=== PATIENT | female | born 1945 | race Caucasian/White ===

== ENCOUNTER 2020-11-29 23:08 | Emergency (ER) | payer OTHER ==
[~2020-11-29] VITALS: Ht 152.4 cm; Wt 49.9 kg
[2020-11-29 23:18] VITALS: BP 131/67
--- NOTE | 2020-11-29 23:20 | NUR ---
TO LOBBY A/W BED AMBULATORY
--- NOTE | 2020-11-29 23:50 | NUR ---
PT BROUGHT TO BED 3 VIA WHEELCHAIR
--- NOTE | 2020-11-30 00:10 | NUR ---
PATIENT PRESENTS TO ED VIA W/C WITH C/O DIFFUSE ABDOMINAL PAIN X 5-6 MONTHS. PER DAUGHTER, PT HAD A F/C PLACED, 3 WEEKS AGO AND IT WAS CHANGED 1 WEEK AGO . DENIES N/V/D; SKIN IS PINK/WARM/DRY; AAOX4. ; LUNGS CLEAR BL; HR EVEN AND REGULAR; PT DENIES ANY FEVER, CP, SOB, OR COUGH AT THIS TIME; VSS; PATIENT POSITIONED FOR COMFORT, REMAINS IN W/C ER MD MADE AWARE OF PT STATUS.
--- NOTE | 2020-11-30 00:18 | NUR ---
Dr. Haile examining patient.
[2020-11-30] MEDS ORDERED: MORPHINE SULFATE 2 MG/ML SYR IVP ONE ×3 (01:20→04:50)
[2020-11-30] MEDS ORDERED: ONDANSETRON 4 MG/2 ML VIAL IVP ONE (01:20)
[2020-11-30] MEDS ORDERED: NACL 0.9% 1,000 ML IV ONE (01:20)
[2020-11-30 01:56] LABS: BASOPHILS % (AUTO) 0.2 % (0.0-2.0); EOSINOPHILS % (AUTO) 0.1 % (0.0-4.0); HEMATOCRIT 26.7 % (36-48); LYMPHOCYTES # (AUTO) 0.5 K/uL (2.5-16.5); LYMPHOCYTES % (AUTO) 10.8 % (20.5-51.1); MEAN CORPUSCULAR HEMOGLOBIN 32 pg (27-31); MEAN CORPUSCULAR HGB CONC 34 g/dL (33-37); MEAN CORPUSCULAR VOLUME 94.7 fL (80-94); MONOCYTES # (AUTO) 0.1 K/uL (0.8-1.0); MONOCYTES % (AUTO) 1.2 % (1.7-9.3); NEUTROPHILS % (AUTO) 87.7 % (42.2-75.2); PLATELET COUNT (AUTO) 352 K/uL (140-450); RED BLOOD CELL COUNT(AUTO) 2.82 MIL/uL (4.20-5.40); RED CELL DISTRIBUTION WIDTH 13.9 % (11.6-13.7); WHITE BLOOD COUNT (AUTO) 4.6 K/uL (4.8-10.8)
[2020-11-30 02:22] LABS: ANION GAP 14.5 (8-16); ASPARTATE AMINOTRANSFERASE 130 U/L (15-37); CARBON DIOXIDE 26.8 mmol/L (21-32); CHLORIDE 98 mmol/L (98-107); CREATININE 1.9 mg/dL (0.6-1.3); GLUCOSE 158 mg/dL (74-106); POTASSIUM 4.3 mmol/L (3.5-5.1); SODIUM SERUM 135 mmol/L (136-145); TOTAL BILIRUBIN 0.9 mg/dL (0.0-1.0); UREA NITROGEN, BLOOD 24 mg/dL (7-18)
[2020-11-30] MEDS ORDERED: MORPHINE SULFATE 2 MG/ML SYR ONE (02:29)
[2020-11-30] MEDS ORDERED: ONDANSETRON 4 MG/2 ML VIAL ONE (02:30)
--- NOTE | 2020-11-30 02:46 | NUR ---
PT TAKEN TO CT
[2020-11-30] MEDS ORDERED: CEPH500C16 PO (03:35)
--- NOTE | 2020-11-30 03:56 | NUR ---
Cheri rush in [facility] - 11/30/20 at [address] ESCAMILLA AT BEDSIDE FOR EXAM
--- NOTE | 2020-11-30 03:57 | NUR ---
DR. ESCAMILLA AT BEDSIDE DISCUSSING PLAN OF CARE
--- NOTE | 2020-11-30 04:05 | NUR ---
CONTINUES WITH C/O PAIN. ADDITIONAL PAIN MED ORDERED
[2020-11-30 05:25] VITALS: BP 134/61
--- NOTE | 2020-11-30 05:25 | NUR ---
PAIN HAS EASED GREATLY IVF COMPLETE.Patient discharged with v/s stable. Written and verbal after care instructions given and explained. Patient alert, oriented and verbalized understanding of instructions. Wheel Chair Assisted with to car. All questions addressed prior to discharge. ID band removed. Patient advised to follow up with PMD. Rx of KEFLEX given. Patient educated on indication of medication including possible reaction and side effects. Opportunity to ask questions provided and answered.
== END 2020-11-30 05:25 | disposition home or self-care (01) ==
LOC: MED 23:08
DX: R10.33 Periumbilical pain (principal); G89.29 Other chronic pain; E11.22 Type 2 diabetes mellitus with diabetic chronic kidney disease; I12.9 Hypertensive chronic kidney disease with stage 1 through stage 4 chronic kidney disease, or unspecified chronic kidney disease; N18.9 Chronic kidney disease, unspecified; Z79.899 Other long term (current) drug therapy
CPT/HCPCS: 36415; 74176; 80053; 81002; 83605; 85025; 96361; 96374; 96375; 96376; 99284; J2270; J2405; J7030

== ENCOUNTER 2020-12-02 14:35 | Emergency (ER) | payer OTHER ==
[~2020-12-02] VITALS: Ht 152.4 cm; Wt 49.9 kg
[~2020-12-02 14:35] MED LIST: CEPH500C16 PO
[2020-12-02 14:40] VITALS: BP 101/37
--- NOTE | 2020-12-02 14:50 | NUR ---
Pt w/c assisted to bed 7 by family.
--- NOTE | 2020-12-02 15:00 | NUR ---
75 Y/O F BIB DAUGHTER FROM HOME, PATIENT PRESENTS TO ED WITH ABD PAIN AND PELVIC PAIN CHRONIC. PT STATES HER PAIN INCREASED WHEN LAST NIGHT HER JAMISON BAG FELL FROM THE BED. PT THINKS JAMISON CATH MAY HAVE COME OUT OR MISPLACED BECAUSE OF INCREASED PAIN IN AREA. DENIES N/V/D; SKIN IS PINK/WARM/DRY; AAOX4 WITH EVEN AND AMBULATES WITH ASSIST, WHEELCHAIR MOSTLY. LUNGS CLEAR BL; HR EVEN AND REGULAR; PT DENIES ANY FEVER, CP, SOB, OR COUGH AT THIS TIME; PATIENT STATES PAIN OF 7/10 AT THIS TIME; VSS; PATIENT POSITIONED FOR COMFORT; HOB ELEVATED; BEDRAILS UP X2; BED DOWN. ER MD MADE AWARE OF PT STATUS. NO BLOOD IN BAG, JAMISON CATH WAS PLACED 2 WEEKS AGO, UROLOGY APPOINTMENT ON 12/04/20. PMH: DIVIRTICULITIS, GASTRITIS, DM2 NKA
[2020-12-02] MEDS ORDERED: traMADol 50 MG TAB PO ONE (15:20)
--- NOTE | 2020-12-02 15:33 | NUR ---
PT REFUSED MEDICATION BECAUSE SHE STATES THAT PO MEDS DO NOT HELP. SELVIND MADE AWARE.
[2020-12-02] MEDS ORDERED: MORPHINE SULFATE 4 MG/ML SYR IM ONE (15:50)
--- NOTE | 2020-12-02 15:57 | NUR ---
CATH URINE COLLECTED AND IN UTILITY.
[2020-12-02] MEDS ORDERED: ACET-9527 PO ×2 (16:30→17:33)
--- NOTE | 2020-12-02 16:35 | NUR ---
URINE WAS PLACED AT NURSES' REGISTRY DIRECTOR, PIPER KELLY NOTIFIED.
--- NOTE | 2020-12-02 16:39 | NUR ---
Patient appears to be resting comfortably in bed. Vital Signs within normal limits. Respirations even and unlabored.
[2020-12-02 16:45] LABS: APPEARANCE,URINE CLEAR (CLEAR); BILIRUBIN,URINE NEGATIVE (NEGATIVE); BLOOD, URINE 1+ (NEGATIVE); COLOR,URINE YELLOW (YELLOW); LEUKOCYTE ESTERASE ,URINE TRACE (NEGATIVE); NITRITE, URINE POSITIVE (NEGATIVE); UGLUCOSE NEGATIVE (NEGATIVE)
[2020-12-02] MEDS ORDERED: SULF-59 PO ×2 (17:26→17:33)
[2020-12-02 17:37] LABS: RBC,URINE 11-20 (MOD) /HPF (0-5)
[2020-12-02 17:46] VITALS: BP 101/37
--- NOTE | 2020-12-02 17:46 | NUR ---
URINE WAS DRAINED FROM JAMISON, 600ML CAROLINE URINE.
--- NOTE | 2020-12-02 17:47 | NUR ---
Patient discharged with v/s stable. Written and verbal after care instructions given and explained. Patient alert, oriented and verbalized understanding of instructions. Wheel Chair Assisted with by caregiver. All questions addressed prior to discharge. ID band removed. Patient advised to follow up with PMD. Rx of HYDROCODONE, SULFAMETHOXAZOLE given. Patient educated on indication of medication including possible reaction and side effects. Opportunity to ask questions provided and answered.
== END 2020-12-02 17:47 | disposition home or self-care (01) ==
LOC: MED 14:35
DX: R10.2 Pelvic and perineal pain (principal); Z46.6 Encounter for fitting and adjustment of urinary device
CPT/HCPCS: 81001; 87086; 96372; 99283; J2270

== ENCOUNTER 2021-01-07 16:04 | Emergency (ER) | payer OTHER ==
[~2021-01-07] VITALS: Ht 152.4 cm; Wt 55.4 kg
[~2021-01-07 16:04] MED LIST changes: +ACET-9527 PO; -CEPH500C16 PO; +SULF-59 PO
[2021-01-07] MEDS ORDERED: NACL 0.9% 1,000 ML IV SCH (16:05)
[2021-01-07] MEDS ORDERED: cefTRIAXone 1,000 MG in DEXT 5% MINI-BAG PLUS 50 ML IV ONE (16:05)
[2021-01-07 16:06] VITALS: BP 105/49
[2021-01-07 16:29] LABS: BASOPHILS % (AUTO) 0.8 % (0.0-2.0); EOSINOPHILS # (AUTO) 0.2 K/uL (0-0.4); EOSINOPHILS % (AUTO) 2.8 % (0.0-4.0); HEMATOCRIT 26.6 % (36-48); HEMOGLOBIN 9.1 g/dL (12.0-16.0); LYMPHOCYTES # (AUTO) 1.5 K/uL (2.5-16.5); MEAN CORPUSCULAR HEMOGLOBIN 35 pg (27-31); MEAN CORPUSCULAR HGB CONC 34 g/dL (33-37); MONOCYTES # (AUTO) 0.5 K/uL (0.8-1.0); MONOCYTES % (AUTO) 9.6 % (1.7-9.3); NEUTROPHILS # (AUTO) 3.5 K/uL (1.8-7.7); NEUTROPHILS % (AUTO) 60.8 % (42.2-75.2); PLATELET COUNT (AUTO) 380 K/uL (140-450); RED BLOOD CELL COUNT(AUTO) 2.61 MIL/uL (4.20-5.40); RED CELL DISTRIBUTION WIDTH 13.7 % (11.6-13.7); WHITE BLOOD COUNT (AUTO) 5.7 K/uL (4.8-10.8)
[2021-01-07] MEDS ORDERED: cefTRIAXone 1,000 MG VIAL ONE (16:39)
[2021-01-07] MEDS ORDERED: KETOROLAC 30 MG/ML VIAL IVP ONE (16:40)
[2021-01-07] MEDS ORDERED: ONDANSETRON 4 MG/2 ML VIAL IVP ONE (16:40)
[2021-01-07 16:42] LABS: ALBUMIN 3.5 g/dL (3.4-5.0); ANION GAP 11.6 (8-16); ASPARTATE AMINOTRANSFERASE 17 U/L (15-37); CARBON DIOXIDE 28.9 mmol/L (21-32); CHLORIDE 104 mmol/L (98-107); CREATININE 0.7 mg/dL (0.6-1.3); GLUCOSE 139 mg/dL (74-106); POTASSIUM 3.5 mmol/L (3.5-5.1); SODIUM SERUM 141 mmol/L (136-145); TOTAL BILIRUBIN 0.4 mg/dL (0.0-1.0); UREA NITROGEN, BLOOD 18 mg/dL (7-18)
[2021-01-07] MEDS ORDERED: ONDA8TAB87 PO (17:28)
[2021-01-07] MEDS ORDERED: CIPR500T4 PO (17:28)
[2021-01-07] MEDS ORDERED: IBUP-2213 PO (17:28)
[2021-01-07] MEDS ORDERED: ACET-8386 PO (17:28)
[2021-01-07 18:38] VITALS: BP 100/52
[2021-01-07 20:31] LABS: APPEARANCE,URINE CLEAR (CLEAR); BILIRUBIN,URINE NEGATIVE (NEGATIVE); BLOOD, URINE NEGATIVE (NEGATIVE); COLOR,URINE ORANGE (YELLOW); LEUKOCYTE ESTERASE ,URINE TRACE (NEGATIVE); PH,URINE 6.5 (5.0-9.0); UGLUCOSE 1+ (NEGATIVE)
[2021-01-07 20:52] LABS: NITRITE, URINE NEGATIVE (NEGATIVE); RBC,URINE NONE SEEN /HPF (0-5); WBC,URINE 0-5 /HPF (0-5)
== END 2021-01-07 18:40 | disposition home or self-care (01) ==
LOC: MED 16:04
DX: R51.9 Headache, unspecified (principal); R11.2 Nausea with vomiting, unspecified; N39.0 Urinary tract infection, site not specified; E11.9 Type 2 diabetes mellitus without complications; F32.9 Major depressive disorder, single episode, unspecified; Z79.899 Other long term (current) drug therapy; Z20.822 Contact with and (suspected) exposure to COVID-19
CPT/HCPCS: 36415; 71045; 80053; 81001; 83605; 83690; 83880; 84484; 85025; 87040; 87086; 87426; 93005; 96365; 96375; 99285; J0696; J1885; J2405; J7030

== ENCOUNTER 2021-01-22 20:09 | Emergency (ER) | payer OTHER ==
[~2021-01-22] VITALS: Ht 154.9 cm; Wt 53.5 kg
[~2021-01-22 20:09] MED LIST changes: +ACET-8386 PO; +CIPR500T4 PO; +IBUP-2213 PO; +ONDA8TAB87 PO
[2021-01-22 20:14] VITALS: BP 131/73
--- NOTE | 2021-01-22 20:14 | NUR ---
TO BED WITH WALKER
--- NOTE | 2021-01-22 20:25 | NUR ---
PT BIB SELF WITH DAUGHTER BY SIDE FOR C/O CHEST PAIN X 4 DAYS. PT REPORTS PAIN IS 7/10, PRESSURE THAT IS INTERMITTENT. RADIATES TO UPPER BACK. PT REPORTS FEELING SOB, VSS, O2 SATURATION 96% ON ROOM AIR. PT REPORTS TAKING IBUPROFEN FOR PAIN WITH NO RELIEF. BILATERAL PERRLA. SKIN IS WARM, DRY AND PINK. SPEECH IS CLEAR. NO NOTED FACIAL DROOPING. AMBULATORY. NO NOTED JVD. CAP REFILL < 3 SECONDS. PT DENIES FEVER, CHILLS, N/V/D. SEE COMPLETE ASSESSMENT FOR FURTHER DETAILS. PLACED IN GOWN AND CONNECTED TO MONITOR. MED HX: ANXIETY, DEPRESSION, DM, URINARY RETENTION ALLERGIEs: NKA
--- NOTE | 2021-01-22 20:25 | NUR ---
CHANDRIKA RAMIREZ AT BEDSIDE PERFORMING EKG.
--- NOTE | 2021-01-22 20:40 | NUR ---
IV 24G RIGHT THUMB EST. LABS DRAWN AND HAND GIVEN TO [employer], AT BEDSIDE.
--- NOTE | 2021-01-22 20:50 | NUR ---
XRAY AT BEDSIDE.
[2021-01-22 20:52] LABS: BASOPHILS # (AUTO) 0.1 K/uL (0.00-0.22); BASOPHILS % (AUTO) 1.4 % (0.0-2.0); EOSINOPHILS # (AUTO) 0.3 K/uL (0-0.4); EOSINOPHILS % (AUTO) 3.3 % (0.0-4.0); HEMATOCRIT 27.6 % (36-48); HEMOGLOBIN 9.3 g/dL (12.0-16.0); LYMPHOCYTES # (AUTO) 2.3 K/uL (2.5-16.5); LYMPHOCYTES % (AUTO) 28.6 % (20.5-51.1); MEAN CORPUSCULAR HEMOGLOBIN 34 pg (27-31); MEAN CORPUSCULAR HGB CONC 34 g/dL (33-37); MEAN CORPUSCULAR VOLUME 100.3 fL (80-94); MONOCYTES # (AUTO) 0.7 K/uL (0.8-1.0); MONOCYTES % (AUTO) 8.7 % (1.7-9.3); NEUTROPHILS # (AUTO) 4.7 K/uL (1.8-7.7); PLATELET COUNT (AUTO) 409 K/uL (140-450); RED BLOOD CELL COUNT(AUTO) 2.75 MIL/uL (4.20-5.40); WHITE BLOOD COUNT (AUTO) 8.2 K/uL (4.8-10.8)
[2021-01-22 21:20] LABS: ALBUMIN 3.5 g/dL (3.4-5.0); ANION GAP 8.9 (8-16); ASPARTATE AMINOTRANSFERASE 20 U/L (15-37); CARBON DIOXIDE 27.9 mmol/L (21-32); CHLORIDE 102 mmol/L (98-107); CREATININE 0.6 mg/dL (0.6-1.3); GLUCOSE 136 mg/dL (74-106); POTASSIUM 3.8 mmol/L (3.5-5.1); SODIUM SERUM 135 mmol/L (136-145); TOTAL BILIRUBIN 0.3 mg/dL (0.0-1.0); UREA NITROGEN, BLOOD 15 mg/dL (7-18)
[2021-01-22] MEDS ORDERED: ALUMINUM HYD/MAG/SIMETHICONE 30 ML UDC PO ONE (21:45)
[2021-01-22] MEDS ORDERED: MECLIZINE 25 MG TAB PO ONE (22:00)
[2021-01-22] MEDS ORDERED: MECL-303 PO (22:12)
[2021-01-22] MEDS ORDERED: ASPI-1822 PO (22:12)
[2021-01-22 22:42] VITALS: BP 134/51
--- NOTE | 2021-01-22 22:42 | NUR ---
Patient discharged with v/s stable. Written and verbal after care instructions given and explained. Patient alert, oriented and verbalized understanding of instructions. Ambulatory with steady gait. All questions addressed prior to discharge. ID band removed. Patient advised to follow up with PMD. Rx of ASPIRIN CHEWABLE AND ANTIVERT given. Patient educated on indication of medication including possible reaction and side effects. Opportunity to ask questions provided and answered. USE OF WALKER FOR SUPPORT; DAUGHTER BY SIDE.
== END 2021-01-22 22:42 | disposition home or self-care (01) ==
LOC: MED 20:09
DX: R07.9 Chest pain, unspecified (principal); F41.9 Anxiety disorder, unspecified; E11.9 Type 2 diabetes mellitus without complications; Z79.899 Other long term (current) drug therapy
CPT/HCPCS: 36415; 71045; 80053; 83880; 84484; 85025; 93005; 99285; J8597

== ENCOUNTER 2021-02-02 15:17 | Inpatient (IN) | payer OTHER, MEDICAID, SELFPAY ==
[~2021-02-02] VITALS: Ht 160 cm; Wt 72.6 kg
[~2021-02-02 15:17] MED LIST changes: +ASPI-1822 PO; +MECL-303 PO
[2021-02-02] MEDS ORDERED: cefTRIAXone 1,000 MG in DEXT 5% MINI-BAG PLUS 50 ML IV ONE (15:25)
[2021-02-02] MEDS ORDERED: NACL 0.9% 1,000 ML IV SCH (15:25)
[2021-02-02 15:28] VITALS: BP 99/39
[2021-02-02 16:10] LABS: BASOPHILS % (AUTO) 0.3 % (0.0-2.0); EOSINOPHILS # (AUTO) 0.2 K/uL (0-0.4); EOSINOPHILS % (AUTO) 1.1 % (0.0-4.0); HEMATOCRIT 28.2 % (36-48); HEMOGLOBIN 9.3 g/dL (12.0-16.0); LYMPHOCYTES # (AUTO) 1.6 K/uL (2.5-16.5); LYMPHOCYTES % (AUTO) 11.2 % (20.5-51.1); MEAN CORPUSCULAR HEMOGLOBIN 32 pg (27-31); MEAN CORPUSCULAR HGB CONC 33 g/dL (33-37); MEAN CORPUSCULAR VOLUME 98.3 fL (80-94); MONOCYTES # (AUTO) 0.8 K/uL (0.8-1.0); MONOCYTES % (AUTO) 5.3 % (1.7-9.3); NEUTROPHILS # (AUTO) 11.7 K/uL (1.8-7.7); NEUTROPHILS % (AUTO) 82.1 % (42.2-75.2); PLATELET COUNT (AUTO) 389 K/uL (140-450); RED BLOOD CELL COUNT(AUTO) 2.87 MIL/uL (4.20-5.40); RED CELL DISTRIBUTION WIDTH 13.9 % (11.6-13.7); WHITE BLOOD COUNT (AUTO) 14.2 K/uL (4.8-10.8)
[2021-02-02] MEDS ORDERED: MECLIZINE 25 MG TAB PO ONE (16:10)
[2021-02-02] MEDS ORDERED: ONDANSETRON 4 MG/2 ML VIAL IVP ONE (16:10)
[2021-02-02 16:30] LABS: ALBUMIN 3.7 g/dL (3.4-5.0); ANION GAP 14.2 (8-16); ASPARTATE AMINOTRANSFERASE 12 U/L (15-37); CHLORIDE 104 mmol/L (98-107); CREATININE 0.7 mg/dL (0.6-1.3); GLUCOSE 124 mg/dL (74-106); POTASSIUM 4.2 mmol/L (3.5-5.1); SODIUM SERUM 141 mmol/L (136-145); TOTAL BILIRUBIN 0.5 mg/dL (0.0-1.0); UREA NITROGEN, BLOOD 17 mg/dL (7-18)
[2021-02-02 16:47] LABS: APPEARANCE,URINE HAZY (CLEAR); BILIRUBIN,URINE NEGATIVE (NEGATIVE); BLOOD, URINE NEGATIVE (NEGATIVE); COLOR,URINE ORANGE (YELLOW); LEUKOCYTE ESTERASE ,URINE NEGATIVE (NEGATIVE); NITRITE, URINE POSITIVE (NEGATIVE); UGLUCOSE TRACE (NEGATIVE)
[2021-02-02] MEDS ORDERED: cefTRIAXone 1,000 MG VIAL ONE (16:58)
[2021-02-02] MEDS ORDERED: LORazepam 2 MG/ML VIAL IM/IVP PRN (17:40)
[2021-02-02] MEDS ORDERED: ZOLPIDEM 5 MG TAB PO PRN (17:40)
[2021-02-02] MEDS ORDERED: ACETAMINOPHEN 325 MG TAB PO PRN (17:40)
[2021-02-02] MEDS ORDERED: DOCUSATE SODIUM 100 MG GELCAP PO PRN (17:40)
[2021-02-02] MEDS ORDERED: ONDANSETRON 4 MG/2 ML VIAL IVP PRN (17:40)
[2021-02-02] MEDS ORDERED: DEXTROSE 50% 50 ML SYR IVP PRN (17:50)
[2021-02-02] MEDS ORDERED: INSULIN LISPRO SLIDING SCALE 100 UNITS/ML VIAL SUBQ PRN (17:50)
[2021-02-02 18:08] LABS: PROTHROMBIN TIME 9.4 secs (10.8-13.4)
[2021-02-02 18:10] LABS: BARBITURATE, URINE NEGATIVE ng/ml (NEG <=200); BENZODIAZEPINE, URINE NEGATIVE ng/mL (NEG <=200); CANNABINOID, URINE NEGATIVE ng/mL (NEG <=50); COCAINE, URINE NEGATIVE ng/mL (NEG <=300); OPIATE, URINE NEGATIVE ng/mL (NEG <=2000); PHENCYCLIDINE SCREEN,URINE NEGATIVE ng/mL (NEG <=25)
[2021-02-02 18:21] LABS: CHOL/HDL RATIO 3.1 (1-4.5); FREE T4 (FREE THYROXINE) 0.69 ng/dL (0.76-1.46); PHOSPHORUS 3.1 mg/dL (2.5-4.9); THYROID STIMULATING HORMONE 3.98 uIU/mL (0.34-3.74)
[2021-02-02] MEDS: NACL 0.9% 1,000 ML IV SCH (19:23)
[2021-02-02] MEDS: PANTOPRAZOLE 40 MG TABEC PO SCH (19:49)
[2021-02-02 20:30] VITALS: BP 105/57
[2021-02-02 20:42] LABS: MAGNESIUM 2.9 mg/dL (1.8-2.4)
[2021-02-02] MEDS: QUEtiapine FUMARATE 100 MG TAB PO SCH (21:05)
[2021-02-02] MEDS: MIRTAZAPINE 15 MG TAB PO SCH (21:05)
[2021-02-02] MEDS: MORPHINE SULFATE 2 MG/ML SYR IVP PRN (21:05)
[2021-02-02] MEDS: BLOOD GLUCOSE MONITORING 1 DEV DEV FS SCH (21:09)
[2021-02-03] VITALS: BP 111/56
[2021-02-03 04:00] VITALS: BP 112/56
[2021-02-03] MEDS: NACL 0.9% 1,000 ML IV SCH ×2 (05:05→14:20)
[2021-02-03] MEDS: MORPHINE SULFATE 2 MG/ML SYR IVP PRN (05:06)
[2021-02-03] MEDS: BLOOD GLUCOSE MONITORING 1 DEV DEV FS SCH ×4 (06:02→20:38)
[2021-02-03 06:54] LABS: BASOPHILS # (AUTO) 0.1 K/uL (0.00-0.22); BASOPHILS % (AUTO) 0.6 % (0.0-2.0); EOSINOPHILS # (AUTO) 0.2 K/uL (0-0.4); HEMOGLOBIN 8.9 g/dL (12.0-16.0); LYMPHOCYTES # (AUTO) 1.7 K/uL (2.5-16.5); LYMPHOCYTES % (AUTO) 16.6 % (20.5-51.1); MEAN CORPUSCULAR HEMOGLOBIN 33 pg (27-31); MEAN CORPUSCULAR HGB CONC 33 g/dL (33-37); MEAN CORPUSCULAR VOLUME 99.2 fL (80-94); MONOCYTES # (AUTO) 0.5 K/uL (0.8-1.0); MONOCYTES % (AUTO) 4.8 % (1.7-9.3); NEUTROPHILS # (AUTO) 7.7 K/uL (1.8-7.7); PLATELET COUNT (AUTO) 350 K/uL (140-450); RED BLOOD CELL COUNT(AUTO) 2.73 MIL/uL (4.20-5.40); RED CELL DISTRIBUTION WIDTH 13.9 % (11.6-13.7); WHITE BLOOD COUNT (AUTO) 10.2 K/uL (4.8-10.8)
[2021-02-03 06:58] LABS: ANION GAP 12.6 (8-16); CARBON DIOXIDE 26.4 mmol/L (21-32); CHLORIDE 110 mmol/L (98-107); CREATININE 0.6 mg/dL (0.6-1.3); GLUCOSE 112 mg/dL (74-106); SODIUM SERUM 145 mmol/L (136-145); UREA NITROGEN, BLOOD 9 mg/dL (7-18)
[2021-02-03 07:00] LABS: MAGNESIUM 2.3 mg/dL (1.8-2.4); PHOSPHORUS 3.6 mg/dL (2.5-4.9)
[2021-02-03 08:00] VITALS: BP 114/63
[2021-02-03] MEDS: QUEtiapine FUMARATE 100 MG TAB PO SCH ×2 (09:22→20:41)
[2021-02-03] MEDS: buPROPion 150 MG TABER PO SCH (09:22)
[2021-02-03] MEDS: ASPIRIN 81 MG TAB.CHEW PO SCH (09:22)
[2021-02-03] MEDS: PANTOPRAZOLE 40 MG TABEC PO SCH (09:22)
[2021-02-03] MEDS: HYDROcodone/APAP 5/325 MG 1 TAB TAB PO PRN (10:28)
[2021-02-03 12:00] VITALS: BP 107/52
[2021-02-03 18:00] VITALS: BP 112/56
[2021-02-03 20:00] VITALS: BP 104/39
[2021-02-03] MEDS: MIRTAZAPINE 15 MG TAB PO SCH (20:41)
[2021-02-04] VITALS: BP 128/61
[2021-02-04] MEDS: NACL 0.9% 1,000 ML IV SCH ×3 (01:07→20:37)
[2021-02-04] MEDS: HYDROcodone/APAP 5/325 MG 1 TAB TAB PO PRN (02:28)
[2021-02-04 04:00] VITALS: BP 117/58
[2021-02-04] MEDS: BLOOD GLUCOSE MONITORING 1 DEV DEV FS SCH ×2 (05:56→11:36)
[2021-02-04 08:00] VITALS: BP 125/63
[2021-02-04] MEDS: ASPIRIN 81 MG TAB.CHEW PO SCH (09:22)
[2021-02-04] MEDS: buPROPion 150 MG TABER PO SCH (09:22)
[2021-02-04] MEDS: PANTOPRAZOLE 40 MG TABEC PO SCH (09:22)
[2021-02-04] MEDS: QUEtiapine FUMARATE 100 MG TAB PO SCH ×2 (09:22→20:36)
[2021-02-04 12:00] VITALS: BP 118/61
[2021-02-04 16:00] VITALS: BP 136/74
[2021-02-04 20:00] VITALS: BP 130/68
[2021-02-04] MEDS: MIRTAZAPINE 15 MG TAB PO SCH (20:36)
[2021-02-04] MEDS: MORPHINE SULFATE 2 MG/ML SYR IVP PRN (22:27)
[2021-02-05 04:00] VITALS: BP 107/74
[2021-02-05 06:11] LABS: BASOPHILS % (AUTO) 0.7 % (0.0-2.0); EOSINOPHILS # (AUTO) 0.2 K/uL (0-0.4); EOSINOPHILS % (AUTO) 3.3 % (0.0-4.0); HEMATOCRIT 26.9 % (36-48); LYMPHOCYTES # (AUTO) 1.9 K/uL (2.5-16.5); LYMPHOCYTES % (AUTO) 36.9 % (20.5-51.1); MEAN CORPUSCULAR HEMOGLOBIN 33 pg (27-31); MEAN CORPUSCULAR HGB CONC 33 g/dL (33-37); MEAN CORPUSCULAR VOLUME 98.5 fL (80-94); MONOCYTES # (AUTO) 0.5 K/uL (0.8-1.0); MONOCYTES % (AUTO) 9.9 % (1.7-9.3); NEUTROPHILS # (AUTO) 2.5 K/uL (1.8-7.7); NEUTROPHILS % (AUTO) 49.2 % (42.2-75.2); PLATELET COUNT (AUTO) 321 K/uL (140-450); RED BLOOD CELL COUNT(AUTO) 2.74 MIL/uL (4.20-5.40); RED CELL DISTRIBUTION WIDTH 13.5 % (11.6-13.7); WHITE BLOOD COUNT (AUTO) 5.1 K/uL (4.8-10.8)
[2021-02-05 06:51] LABS: ANION GAP 11.5 (8-16); CARBON DIOXIDE 25.9 mmol/L (21-32); CHLORIDE 108 mmol/L (98-107); CREATININE 0.7 mg/dL (0.6-1.3); GLUCOSE 100 mg/dL (74-106); POTASSIUM 3.4 mmol/L (3.5-5.1); SODIUM SERUM 142 mmol/L (136-145); UREA NITROGEN, BLOOD 10 mg/dL (7-18)
[2021-02-05 08:00] VITALS: BP 112/69
[2021-02-05] MEDS: PANTOPRAZOLE 40 MG TABEC PO SCH (09:57)
[2021-02-05] MEDS: ASPIRIN 81 MG TAB.CHEW PO SCH (09:57)
[2021-02-05] MEDS: NACL 0.9% 1,000 ML IV SCH ×3 (09:58→22:11)
[2021-02-05] MEDS: buPROPion 150 MG TABER PO SCH (09:58)
[2021-02-05] MEDS: QUEtiapine FUMARATE 100 MG TAB PO SCH ×2 (09:58→21:26)
[2021-02-05 16:00] VITALS: BP 120/73
[2021-02-05] MEDS: MIRTAZAPINE 15 MG TAB PO SCH (21:27)
[2021-02-05] MEDS: MORPHINE SULFATE 2 MG/ML SYR IVP PRN (21:58)
[2021-02-06] MEDS: NACL 0.9% 1,000 ML IV SCH ×2 (01:40→08:46)
[2021-02-06 06:00] VITALS: BP 125/77
[2021-02-06] MEDS ORDERED: POTASSIUM CHLORIDE 10 MEQ TABER PO ONE (06:45)
[2021-02-06] MEDS ORDERED: KCL 20 MEQ/WATER INJ PREMIX 200 ML IV ONE (06:45)
[2021-02-06 08:00] VITALS: BP 135/70
[2021-02-06] MEDS ORDERED: TAMSULOSIN 0.4 MG CAP PO SCH (08:30)
[2021-02-06] MEDS: PANTOPRAZOLE 40 MG TABEC PO SCH (08:45)
[2021-02-06] MEDS: QUEtiapine FUMARATE 100 MG TAB PO SCH (08:45)
[2021-02-06] MEDS: ASPIRIN 81 MG TAB.CHEW PO SCH (08:45)
[2021-02-06] MEDS: buPROPion 150 MG TABER PO SCH (08:45)
[2021-02-06] MEDS ORDERED: DOCU-299 PO (09:00)
[2021-02-06] MEDS ORDERED: BUPR150T41 PO (09:00)
[2021-02-06] MEDS ORDERED: TOR30I IM (09:01)
[2021-02-06] MEDS ORDERED: PANT40EC56 PO (09:01)
[2021-02-06] MEDS ORDERED: TAMS0.4C96 PO (09:01)
[2021-02-06] MEDS ORDERED: MIRT15TA4 PO (09:01)
[2021-02-06] MEDS ORDERED: QUET100T44 PO (09:01)
== END 2021-02-06 15:00 | DRG 871 ==
LOC: MED 15:17 → MTU 17:42
PROVIDERS: ADMIT Family Medicine; ATTEND Family Medicine
DX: A41.9 Sepsis, unspecified organism (principal); G93.41 Metabolic encephalopathy; J18.9 Pneumonia, unspecified organism; N39.0 Urinary tract infection, site not specified; J98.11 Atelectasis; F32.9 Major depressive disorder, single episode, unspecified; K21.9 Gastro-esophageal reflux disease without esophagitis; Z20.822 Contact with and (suspected) exposure to COVID-19; E11.9 Type 2 diabetes mellitus without complications; F41.9 Anxiety disorder, unspecified; G89.29 Other chronic pain; K80.20 Calculus of gallbladder without cholecystitis without obstruction; E87.6 Hypokalemia; N20.0 Calculus of kidney; Z79.82 Long term (current) use of aspirin; Z79.899 Other long term (current) drug therapy; Z90.710 Acquired absence of both cervix and uterus
CPT/HCPCS: 36415; 70450; 71045; 76700; 80048; 80053; 80305; 81003; 82150; 82948; 83036; 83605; 83690; 83735; 83880; 84100; 84439; 84443; 84484; 85025; 85610; 85730; 87040; 87081; 87086; 92610; 92700; 93005; 93880; 96365; 96375; 97112; 97116; 97163-GP; 97530; 99285; J0696; J1815; J2270; J2405; J7060; J8597